=== PATIENT | male | born 1965 | race Caucasian/White ===

== ENCOUNTER 2016-08-10 21:40 | Inpatient (IN) | payer BC ==
--- NOTE | ~2016-08-10 | HP ---
History And Physical [place] [id number] [facility] [place]. [address] NAME: SONALI FRAZIER : 69 STATUS : ADM Rajiv PAT#: [id number] AGE: 51 ADM/REG DATE : 08/10/16 MR#: [id number] REPORT SERV DATE: 08/11/16 DICTATED BY: SONALI MCDONALD DATE: 08/11/16 REPORT STATUS : Draft TRANSCRIBED BY: MODL DATE: 08/11/16 DATE OF ADMISSION: 08/10/2016 POINT OF ENTRY: [facility] Emergency Department. CHIEF COMPLAINT: Abdominal wall abscess. HISTORY OF PRESENT ILLNESS: Mr. Frazier is a 51-year-old gentleman with a history of hypertension, hyperlipidemia, obstructive sleep apnea, on CPAP therapy, legal deafness as well as recurrent skin infections who presents to the emergency department with a right lower quadrant abdominal wall abscess. Majority of history is obtained from the patient's sister who is at bedside as the patient is legally deaf and is unable to provide much history. She states that he has had issues with boils in the past that will occasionally pop up. He is on chronic suppressive minocycline therapy for this issue. She received a call from him on Thursday saying that he had an abdominal wall abscess that had spontaneously ruptured and was draining blood and pus, and had a very foul odor to it. She went to visit him and found that the abscess was quite large in size, about the size of "cantaloupe" with some associated surrounding skin cellulitis. Given his diabetes, she was very concerned for systemic spread and found some Augmentin lying around in the house that he had not completed and started him on Augmentin. She then brought him to the emergency department on Thursday evening after her shift ended at work on Thursday. She denied any known recent fevers, night sweats or chills. He is not complaining of any other issues such as chest pain, shortness of breath, nausea, or vomiting, and she states that his blood sugars are very well controlled on his current regimen. Initial evaluation in the emergency department for a white count of 7.7, lactic acid is within normal limits. The abdominal wall abscess was cultured. There does not appear to be any remaining pockets of infection to be drained. He was started on IV vancomycin and admitted to the Hospitalist Service. REVIEW OF SYSTEMS: Comprehensive review of systems Otherwise negative unless listed in history of present illness. PAST MEDICAL HISTORY: 1. Obstructive sleep apnea, on CPAP therapy. 2. Glaucoma. 3. Pel-nqqbwpi-lrzofkllj diabetes mellitus type 2. 4. Legal deafness. 5. Hypertension. 6. Hyperlipidemia. 7. Recurrent skin infections with boils. 8. Ruptured disk. History And Physical [address] [address] NAME: SONALI FRAZIER : 69 STATUS : ADM Rajiv PAT#: [id number] AGE: 51 ADM/REG DATE : 08/10/16 MR#: [id number] REPORT SERV DATE: 08/11/16 DICTATED BY: SONALI MCDONALD DATE: 08/11/16 REPORT STATUS : Draft TRANSCRIBED BY: HERMILO DATE: 08/11/16 PAST SURGICAL HISTORY: 1. Cataracts. 2. Inguinal hernia. ALLERGIES: NO KNOWN DRUG ALLERGIES. HOME MEDICATIONS: 1. Norvasc 10 mg daily. 2. Neurontin 300 mg t.i.d. 3. Hydralazine 50 mg b.i.d. 4. Robaxin 750 mg q.8 hours p.r.n. 5. Minocycline 100 mg daily. 6. Percocet 5/325, 1 tab q.4 hours p.r.n. 7. Januvia 100 mg daily. 8. Timolol 0.5 mg b.i.d. SOCIAL HISTORY: Denies any alcohol or illicits, does smoke cigars. Lives alone. FAMILY MEDICAL HISTORY: Mother with hypertension, of Pick's disease. Father with coronary artery disease and diabetes. Siblings with hypertension and COPD. LABS AND IMAGIN. White count 7.7, hemoglobin is 14.1, hematocrit is 41.2, and platelet count is 258. 2. Sodium is 141, potassium 3.7, chloride 105, carbon dioxide 27, BUN 11, creatinine 0.8, glucose is 117, calcium is 9.1, protein 7.9, albumin 4.1, bilirubin is 0.6. ALT is 20, AST 12, alkaline phosphatase is 84. 3. Lactic acid 0.7. PHYSICAL EXAMINATION: VITAL SIGNS: Temperature 97.5 degrees Fahrenheit, pulse is 67, respirations 18, saturating 100% on room air, blood pressure 145/73. GENERAL: The patient is awake, alert, in no acute distress. Resting comfortably in bed. He is a well-developed, well-nourished, male. Sister is at bedside. HEENT: Atraumatic and normocephalic. Moist mucous membranes. Pupils are equal, round, reactive to light and accommodation. Extraocular eye movements are intact. No scleral icterus. NECK: No jugular venous distention. No carotid bruits. CARDIAC: Regular rate and rhythm. No murmurs or gallops. Normal S1, S2. LUNGS: Clear to auscultation bilaterally. No wheezes, rhonchi, or rales. ABDOMEN: Obese, the patient has a large area of induration of approximately 4 x 2 cm in size on the right lower quadrant. There is a draining sinus tract that does not appear to have any focal area of pus that can be further drained. The abscess with associated cavity is surrounded by abdominal wall cellulitis as well, spreading into the inguinal region as well as the left lower quadrant of his abdomen. No palpable fluid collections appreciated. No subcutaneous air. EXTREMITIES: Warm and perfused. No cyanosis, clubbing, or edema. SKIN: Warm and dry except for noted above. The patient does have various small History And Physical [address] [address] NAME: SONALI FRAZIER : 69 STATUS : ADM Rajiv PAT#: [id number] AGE: 51 ADM/REG DATE : 08/10/16 MR#: [id number] REPORT SERV DATE: 08/11/16 DICTATED BY: SONALI MCDONALD DATE: 08/11/16 REPORT STATUS : Draft TRANSCRIBED BY: MODL DATE: 08/11/16 subcentimeter nodules, but no other apparent boils or active skin infection. PSYCH: Affect appropriate. NEURO: Alert and oriented x3. Cranial nerves II through XII grossly intact. ASSESSMENT AND PLAN: Mr. Frazier is a 51-year-old gentleman who presents with a right lower quadrant abdominal wall abscess and cellulitis. PROBLEM LIST: 1. Right lower quadrant abdominal wall cellulitis and abscess with spontaneous drainage. 2. Uac-vjhgcmg-kqoqtoygk diabetes mellitus type 2. 3. Hypertension. 4. History of chronic skin infections. PLAN: 1. Abdominal wall abscess and cellulitis. We will place the patient on IV vancomycin as well as Levaquin as previous wound cultures in [facility] show growth of MRSA as well as a Proteus organism which is resistant to many antibiotics, but sensitive to Levaquin. We will follow up blood cultures as well as wound cultures that have been obtained in the emergency department. We will consult Wound Care for assistance. There does not appear to be any abscess cavity remaining to be drained. Therefore, we will hold off on surgical consultation at this time. 2. Ehd-zwpnrqk-uxrponphr diabetes mellitus 2. I am holding the patient's Januvia, placed him on insulin sliding scale. 3. Hypertension, continue the patient's home medications. 4. DVT prophylaxis, Lovenox subcutaneously. CODE STATUS: The patient wished to be full code. JCB/MODL Sonali Mcdonald MD / [id number] CC: Leti Rausch NP
--- NOTE | ~2016-08-10 | DS ---
Discharge Summary [facility] [address] [place]. [address] NAME: SONALI FRAZIER : 69 STATUS : DIS IN PAT#: [id number] AGE: 51 ADM/REG DATE : 08/10/16 MR#: [id number] REPORT SERV DATE: 08/15/16 DICTATED BY: DOUGLAS STILES DATE: 08/14/16 REPORT STATUS : Draft TRANSCRIBED BY: MODL DATE: 08/14/16 ADMISSION DATE: 08/10/2016 DISCHARGE DATE: 08/14/2016 REASON FOR ADMISSION: Abdominal wall abscess. HISTORY: This 51-year-old male with a history of recurrent skin infections who had presented to the emergency room with a right lower quadrant abdominal wall abscess that spontaneously ruptured. DISCHARGE DIAGNOSES: 1. Right lower quadrant wall cellulitis and abscess. 2. Ota-brqpobg-xyvwgxvxn diabetes type 2. 3. Hypertension. 4. Blindness. 5. Deafness. HOSPITAL COURSE: 1. Abdominal wall abscess and cellulitis. The patient had abscess spontaneously ruptured on admission, was admitted due to recurrent skin infections and possibility of multiple drug-resistant organisms as well as history of diabetes. The patient was admitted and started on IV Levaquin and IV vancomycin as he had previous wound cultures positive for MRSA and Proteus. The wound culture would be positive for E. coli resistant to Levaquin, however, the patient's cellulitis was much improved since admission. The area of abscess was still very indurated and still draining pus even as of today, we consulted surgery Dr. Cabrera to take a look at the abscess. He felt like it was fine on antibiotics for the time being and did not need incision and drainage. However, he did want the patient to follow up with him in the office. The patient was converted from IV Levaquin and vancomycin to Bactrim DS which the organism was sensitive to, and he will be sent home with a 5 day prescription for the Bactrim. DISCHARGE CONDITION: Stable. DISCHARGE MEDICATIONS: 1. Timolol 0.5% ophthalmic. 2. Hydralazine 50 mg p.o. b.i.d. 3. Gabapentin 300 mg p.o. t.i.d. 4. Robaxin 750 mg p.o. q.8 hours. 5. Percocet one tab q.4 hours p.r.n. 6. Januvia 100 mg p.o. daily. 7. Minocycline 100 mg p.o. daily to be held until after Bactrim completed. 8. Bactrim 1 tablet q.12 hours x5 days. 9. Lisinopril 10 mg p.o. daily. DISCHARGE PLAN: The patient is discharged home with home health for wound care and followup with Dr. Cabrera, Surgery in two weeks regarding abdominal abscess and follow up with primary Discharge Summary [address] [address] NAME: SONALI FRAZIER : 69 STATUS : DIS IN PAT#: [id number] AGE: 51 ADM/REG DATE : 08/10/16 MR#: [id number] REPORT SERV DATE: 08/15/16 DICTATED BY: DOUGLAS STILES DATE: 08/14/16 REPORT STATUS : Draft TRANSCRIBED BY: HERMILO DATE: 08/14/16 care Leti Rausch, in one to two weeks. MARK/BEVERLYL Douglas Stiles APN / [id number] CC: Yanick Kilpatrick NP Stephen Roe, M.D.
[~2016-08-10 21:40] MED LIST: DIABET1.25 PO; GLUCOPHAGE1000 MG PO; LISINOPRIL40 MG PO; LUTEIN1 CAP OR; LYRICA100 MG PO; MINOCIN50 PO; NORV5 PO; PRILOSEC40 MG PO; TIMOPTIC0.5 % OP
[2016-08-10 22:50] LABS: BASOPHILS 0.8 %; BASOPHILS ABSOLUTE 0.06 10/3/uL (0.0-0.16); EOSINOPHILS 7.1 %; EOSINOPHILS ABSOLUTE 0.55 10/3/uL (0.0-0.53); HEMATOCRIT 41.2 % (40.0-51.0); HEMOGLOBIN 14.1 g/dL (13.6-17.8); IMMATURE GRANULOCYTES 0.4 %; IMMATURE GRANULOCYTES ABSOLUTE 0.03 10/3/uL (0.0-0.11); LYMPHOCYTES 17.7 %; LYMPHOCYTES ABSOLUTE 1.37 10/3/uL (0.67-4.30); MANUAL DIFF NO %; MEAN CORPUS HGB CONC 34.2 g/dL (32.0-36.0); MEAN CORPUSCULAR HEMOGLOB 29.4 pg (26.0-34.0); MEAN CORPUSCULAR VOLUME 85.8 fL (80-100); MEAN PLATELET VOLUME 10.4 fL (9.2-13.0); MONOCYTES 6.1 %; MONOCYTES ABSOLUTE 0.47 10/3/uL (0.21-1.20); NEUTROPHILS 67.9 %; NEUTROPHILS ABSOLUTE 5.26 10/3/uL (2.02-8.40); PLATELET COUNT 258 10/3/uL (150-400); RBC DISTRIBUTION WIDTH 14.4 % (12.0-16.0); WHITE BLOOD CELLS 7.7 10/3/uL (4.5-10.5)
[2016-08-10 23:05] LABS: A/G RATIO 1.1 (0.7-1.9); ALBUMIN 4.1 G/DL (3.5-5.0); ALKALINE PHOSPHATASE 84 U/L (45-117); BUN (BLOOD UREA NITROGEN) 11 MG/DL (6-23); CALCIUM, SERUM 9.1 MG/DL (8.5-10.4); CHLORIDE, SERUM 105 MMOL/L (96-112); CO2 (CARBON DIOXIDE) 27 MMOL/L (24-34); CREATININE 0.88 MG/DL (0.70-1.30); GFR AFRICAN AMERICAN 117 ML/MIN (>=60); GFR NON AFRICAN AMERICAN 101 ML/MIN (>=60); GLOBULIN 3.8 G/DL (2.5-4.1); GLUCOSE, SERUM 117 MG/DL (60-99); POTASSIUM, SERUM 3.7 MMOL/L (3.5-5.3); SGOT(AST) 12 U/L (5-40); SGPT(ALT) 28 U/L (5-65); SODIUM, SERUM 141 MMOL/L (135-148); TOTAL BILIRUBIN 0.6 MG/DL (0-1.2); TOTAL PROTEIN 7.9 G/DL (6.0-8.5)
[2016-08-11] MEDS ORDERED: APRES50 PO (02:13)
[2016-08-11] MEDS ORDERED: NEUR300 PO (02:13)
[2016-08-11] MEDS ORDERED: METHOC750B PO (02:14)
[2016-08-11] MEDS ORDERED: NORV10 PO (02:15)
[2016-08-11] MEDS ORDERED: PCET PO (02:15)
[2016-08-11] MEDS ORDERED: JANUVIA100 MG PO (02:16)
[2016-08-11] MEDS ORDERED: TIMOPTIC OCU0.25 % OPH (02:16)
[2016-08-11] MEDS ORDERED: MINOCIN100 PO (02:18)
[2016-08-12 08:35] LABS: BASOPHILS 0.9 %; BASOPHILS ABSOLUTE 0.05 10/3/uL (0.0-0.16); EOSINOPHILS 9.6 %; EOSINOPHILS ABSOLUTE 0.53 10/3/uL (0.0-0.53); HEMATOCRIT 40.8 % (40.0-51.0); HEMOGLOBIN 13.7 g/dL (13.6-17.8); IMMATURE GRANULOCYTES 0.4 %; IMMATURE GRANULOCYTES ABSOLUTE 0.02 10/3/uL (0.0-0.11); LYMPHOCYTES 28.7 %; LYMPHOCYTES ABSOLUTE 1.58 10/3/uL (0.67-4.30); MEAN CORPUS HGB CONC 33.6 g/dL (32.0-36.0); MEAN CORPUSCULAR HEMOGLOB 28.4 pg (26.0-34.0); MEAN CORPUSCULAR VOLUME 84.5 fL (80-100); MEAN PLATELET VOLUME 10.7 fL (9.2-13.0); MONOCYTES 6.2 %; MONOCYTES ABSOLUTE 0.34 10/3/uL (0.21-1.20); NEUTROPHILS 54.2 %; NEUTROPHILS ABSOLUTE 2.99 10/3/uL (2.02-8.40); PLATELET COUNT 279 10/3/uL (150-400); RBC DISTRIBUTION WIDTH 14.4 % (12.0-16.0); RED CELL COUNT 4.83 10/6/uL (4.7-6.1); WHITE BLOOD CELLS 5.5 10/3/uL (4.5-10.5)
[2016-08-12 08:37] LABS: MANUAL DIFF NO %
[2016-08-12 08:40] LABS: BUN (BLOOD UREA NITROGEN) 8 MG/DL (6-23); CALCIUM, SERUM 8.9 MG/DL (8.5-10.4); CHLORIDE, SERUM 107 MMOL/L (96-112); CO2 (CARBON DIOXIDE) 26 MMOL/L (24-34); CREATININE 0.79 MG/DL (0.70-1.30); GFR AFRICAN AMERICAN 122 ML/MIN (>=60); GFR NON AFRICAN AMERICAN 105 ML/MIN (>=60); GLUCOSE, SERUM 116 MG/DL (60-99); POTASSIUM, SERUM 3.8 MMOL/L (3.5-5.3); SODIUM, SERUM 141 MMOL/L (135-148)
[2016-08-13 05:41] LABS: BUN (BLOOD UREA NITROGEN) 11 MG/DL (6-23); CALCIUM, SERUM 8.3 MG/DL (8.5-10.4); CHLORIDE, SERUM 107 MMOL/L (96-112); CO2 (CARBON DIOXIDE) 25 MMOL/L (24-34); CREATININE 0.85 MG/DL (0.70-1.30); GFR AFRICAN AMERICAN 119 ML/MIN (>=60); GFR NON AFRICAN AMERICAN 102 ML/MIN (>=60); POTASSIUM, SERUM 3.8 MMOL/L (3.5-5.3); SODIUM, SERUM 141 MMOL/L (135-148)
[2016-08-13 05:54] LABS: GLUCOSE, SERUM 188 MG/DL (60-99)
[2016-08-14 06:09] LABS: BASOPHILS 0.8 %; BASOPHILS ABSOLUTE 0.04 10/3/uL (0.0-0.16); EOSINOPHILS 10.1 %; IMMATURE GRANULOCYTES 0.4 %; IMMATURE GRANULOCYTES ABSOLUTE 0.02 10/3/uL (0.0-0.11); LYMPHOCYTES 34.4 %; MEAN CORPUSCULAR HEMOGLOB 27.6 pg (26.0-34.0); MEAN CORPUSCULAR VOLUME 83.9 fL (80-100); MEAN PLATELET VOLUME 10.3 fL (9.2-13.0); MONOCYTES 8.3 %; MONOCYTES ABSOLUTE 0.41 10/3/uL (0.21-1.20); NEUTROPHILS ABSOLUTE 2.27 10/3/uL (2.02-8.40); PLATELET COUNT 261 10/3/uL (150-400); RBC DISTRIBUTION WIDTH 14.3 % (12.0-16.0); RED CELL COUNT 4.34 10/6/uL (4.7-6.1); WHITE BLOOD CELLS 4.9 10/3/uL (4.5-10.5)
[2016-08-14 06:17] LABS: BUN (BLOOD UREA NITROGEN) 10 MG/DL (6-23); CALCIUM, SERUM 8.3 MG/DL (8.5-10.4); CHLORIDE, SERUM 101 MMOL/L (96-112); CO2 (CARBON DIOXIDE) 27 MMOL/L (24-34); CREATININE 0.91 MG/DL (0.70-1.30); GFR AFRICAN AMERICAN 114 ML/MIN (>=60); GFR NON AFRICAN AMERICAN 99 ML/MIN (>=60); SODIUM, SERUM 136 MMOL/L (135-148)
[2016-08-14 06:18] LABS: GLUCOSE, SERUM 343 MG/DL (60-99); HEMATOCRIT 36.4 % (40.0-51.0); MANUAL DIFF NO %
[2016-08-14] MEDS ORDERED: BACDS PO (09:24)
[2016-08-14] MEDS ORDERED: PRIN10 PO (09:24)
== END 2016-08-14 13:13 | disposition home health service (06) | DRG 603 ==
LOC: ER 21:40 → ER/OF 23:59 → 4SO 08-11 05:17
PROVIDERS: Internal Medicine; Nurse Practitioner Gerontology; Specialist
DX: L02.211 Cutaneous abscess of abdominal wall (principal); Z99.81 Dependence on supplemental oxygen; I10 Essential (primary) hypertension; E78.5 Hyperlipidemia, unspecified; G47.33 Obstructive sleep apnea (adult) (pediatric); H91.90 Unspecified hearing loss, unspecified ear; E11.9 Type 2 diabetes mellitus without complications; L03.311 Cellulitis of abdominal wall; H54.0 Blindness, both eyes; I34.0 Nonrheumatic mitral (valve) insufficiency; H40.9 Unspecified glaucoma; E66.01 Morbid (severe) obesity due to excess calories; T46.1X5A Adverse effect of calcium-channel blockers, initial encounter; G89.29 Other chronic pain; Z83.3 Family history of diabetes mellitus; Z82.49 Family history of ischemic heart disease and other diseases of the circulatory system; Z86.14 Personal history of Methicillin resistant Staphylococcus aureus infection
CPT/HCPCS: 80048; 80053; 80202; 82962; 83605; 85025; 87040; 87070; 87077; 87186; 87205; 94660; 96365; 99285; A9270-GY; J1956; J3370

== ENCOUNTER 2016-08-29 21:45 | Emergency (ER) | payer BC ==
[~2016-08-29 21:45] MED LIST changes: +APRES50 PO; +BACDS PO; +JANUVIA100 MG PO; +METHOC750B PO; +MINOCIN100 PO; +NEUR300 PO; +NORV10 PO; +PCET PO; +PRIN10 PO; +TIMOPTIC OCU0.25 % OPH
[2016-08-30 03:13] LABS: BASOPHILS 1.2 %; BASOPHILS ABSOLUTE 0.08 10/3/uL (0.0-0.16); EOSINOPHILS 9.8 %; EOSINOPHILS ABSOLUTE 0.64 10/3/uL (0.0-0.53); ER CBC TAT 0 Hrs 00 Mins; HEMOGLOBIN 13.5 g/dL (13.6-17.8); IMMATURE GRANULOCYTES 0.2 %; IMMATURE GRANULOCYTES ABSOLUTE 0.01 10/3/uL (0.0-0.11); LYMPHOCYTES 28.1 %; LYMPHOCYTES ABSOLUTE 1.83 10/3/uL (0.67-4.30); MEAN CORPUS HGB CONC 33.5 g/dL (32.0-36.0); MEAN CORPUSCULAR HEMOGLOB 29.4 pg (26.0-34.0); MEAN PLATELET VOLUME 10.6 fL (9.2-13.0); MONOCYTES 8.6 %; MONOCYTES ABSOLUTE 0.56 10/3/uL (0.21-1.20); NEUTROPHILS 52.1 %; NEUTROPHILS ABSOLUTE 3.39 10/3/uL (2.02-8.40); PLATELET COUNT 223 10/3/uL (150-400); RBC DISTRIBUTION WIDTH 14.3 % (12.0-16.0); RED CELL COUNT 4.59 10/6/uL (4.7-6.1); WHITE BLOOD CELLS 6.5 10/3/uL (4.5-10.5)
[2016-08-30 03:16] LABS: HEMATOCRIT 40.3 % (40.0-51.0); MANUAL DIFF NO %; MEAN CORPUSCULAR VOLUME 87.8 fL (80-100)
[2016-08-30 03:24] LABS: INFLUENZA A SCREEN NEGATIVE (NEGATIVE); INFLUENZA B SCREEN NEGATIVE (NEGATIVE)
[2016-08-30 03:30] LABS: A/G RATIO 1.2 (0.7-1.9); BUN (BLOOD UREA NITROGEN) 10 MG/DL (6-23); CALCIUM, SERUM 8.9 MG/DL (8.5-10.4); CHLORIDE, SERUM 107 MMOL/L (96-112); CO2 (CARBON DIOXIDE) 26 MMOL/L (24-34); CREATININE 0.94 MG/DL (0.70-1.30); GFR AFRICAN AMERICAN 110 ML/MIN (>=60); GFR NON AFRICAN AMERICAN 95 ML/MIN (>=60); GLOBULIN 3.4 G/DL (2.5-4.1); POTASSIUM, SERUM 3.9 MMOL/L (3.5-5.3); SGOT(AST) 12 U/L (5-40); SGPT(ALT) 30 U/L (5-65); TOTAL BILIRUBIN 0.6 MG/DL (0-1.2); TOTAL PROTEIN 7.4 G/DL (6.0-8.5)
[2016-08-30 03:31] LABS: ALKALINE PHOSPHATASE 69 U/L (45-117); GLUCOSE, SERUM 130 MG/DL (60-99); SODIUM, SERUM 143 MMOL/L (135-148)
[2016-08-30 03:56] LABS: ASCORBIC ACID (UR NOT ORDER) NEG (NEG); BILIRUBIN, URINE NEGATIVE (NEG); ER URINALYSIS TAT 0 Hrs 00 Mins; KETONE, URINE NEGATIVE (NEG); LEUKOCYTE ESTERASE(NOT OR NEG (NEG); NITRITE (URINE) NEG (NEG); WBC (NOT ORDERED) (RFLEX) 1 (0-5)
[2016-08-30 04:32] LABS: PROCALCITONIN 0.05 ng/mL (<0.5)
== END 2016-08-30 05:00 | disposition home or self-care (01) ==
LOC: ER 21:45
PROVIDERS: Nurse Practitioner
DX: L08.9 Local infection of the skin and subcutaneous tissue, unspecified (principal); E11.65 Type 2 diabetes mellitus with hyperglycemia; I10 Essential (primary) hypertension; E78.5 Hyperlipidemia, unspecified; Z79.899 Other long term (current) drug therapy
CPT/HCPCS: 80053; 81001; 83605; 84145; 85025; 87040; 87804; 99284; A9270-GY

== ENCOUNTER 2016-10-05 19:08 | Inpatient (IN) | payer BC, OTHER ==
--- NOTE | ~2016-10-05 | HP ---
History And Physical [place] [address] [facility] [place]. [address] NAME: SONALI FRAZIER : [birth year] STATUS : ADM IN [facility]#: [id number] AGE: 51 ADM/REG DATE : 10/06/16 MR#: [id number] REPORT SERV DATE: 10/06/16 DICTATED BY: SONALI MCDONALD DATE: 10/06/16 REPORT STATUS : Draft TRANSCRIBED BY: MODL DATE: 10/06/16 DATE OF ADMISSION: 10/06/2016 POINT OF ENTRY: [facility] Emergency Department PRIMARY CARE PHYSICIAN: Savannah Zuñiga NP CHIEF COMPLAINT: Abdominal wall cellulitis. HISTORY OF PRESENT ILLNESS: Mr. Frazier is a 51-year-old gentleman with history of non-insulin dependent diabetes mellitus type 2, hypertension, hyperlipidemia, obstructive sleep apnea, on CPAP therapy as well as legal deafness and recurrent skin infections who presents to the emergency department today with a one- to two-day history of right lower quadrant abdominal wall cellulitis with abscess that is now spontaneously draining. The patient was admitted to the Hospitalist Service from 08/10/2016 through 08/14/2016 for very similar complaints of the right lower quadrant abdominal wall cellulitis with spontaneously draining abscess. Wound cultures at that time grew E. coli that was resistant to fluoroquinolones. The patient was subsequently discharged to home on Bactrim. The patient's sister who is at bedside and providing all the history states that he had good response to the Bactrim, however, a few days after completing the course of Bactrim, it started to become red again, and he was seen in the ER, received a second prescription for Bactrim. Unfortunately, a few days later, he developed a diffuse erythematous rash which was felt to be due to the Bactrim and that was then discontinued, replacement antibiotic was not able to be obtained from his primary care physician. Sister states he has been doing well up until last night when he called her again to tell her that he had a boil in the right lower quadrant that was draining. She came by to see him after work today and noticed that there was redness in the right lower quadrant underneath his pannus with spontaneous drainage with foul odor. He was then transferred to the ER for further evaluation. Initial evaluation in the emergency department notable for stable vital signs except for elevated blood pressure initially of 226/100; on recheck, it is now 190s/80s. His white count is normal. Wound and blood cultures were obtained and he is started on vancomycin and admitted to the Hospitalist Service. COMPREHENSIVE REVIEW OF SYSTEMS: Otherwise, negative unless listed in history of present illness. PREVIOUS MEDICAL HISTORY: 1. Legal deafness. 2. Ufp-ytwanlj-venytyazd diabetes mellitus type 2. 3. Hypertension. 4. Hyperlipidemia. History And Physical [address] [address] NAME: SONALI FRAZIER : 69 STATUS : ADM IN [facility]#: [id number] AGE: 51 ADM/REG DATE : 10/06/16 MR#: [id number] REPORT SERV DATE: 10/06/16 DICTATED BY: SONALI MCDONALD DATE: 10/06/16 REPORT STATUS : Draft TRANSCRIBED BY: HERMILO DATE: 10/06/16 5. Obstructive sleep apnea, on CPAP therapy. 6. History of glaucoma. 7. History of recurrent skin infections growing multiple organisms including E. coli, MRSA, Proteus, and Staph epidermidis. SURGICAL HISTORY: 1. Cataracts. 2. Inguinal hernia. ALLERGIES: BACTRIM. HOME MEDICATIONS: Pending at the time of dictation. SOCIAL HISTORY: Denies any tobacco, alcohol, or illicits. Lives alone. Sister is very closely involved in his care. FAMILY MEDICAL HISTORY: Mother with hypertension. Father with coronary artery disease and diabetes. Siblings with hypertension and COPD. LABS AND IMAGIN. White count 8.0, hemoglobin is 14.3, hematocrit is 43.7, and platelet count is 242. 2. Sodium is 140, potassium 3.8, chloride 104, carbon dioxide 31, BUN 13, creatinine 0.99, glucose is 140, calcium is 9.5, protein 7.9, albumin is 4.1. Bilirubin is 0.6, ALT is 17, AST 10, alkaline phosphatase is 75. Urinalysis; specific gravity is 1.018, no evidence of any infection. 3. Chest x-ray per my review shows no acute cardiopulmonary abnormality. PHYSICAL EXAMINATION: VITAL SIGNS: Temperature is 98.3 degrees Fahrenheit, pulse is 63, respirations 20, saturating 100% on room air, blood pressure 226/100, on recheck, it is now 190s/90s. GENERAL: The patient is awake, alert, and in no distress, resting comfortably in bed. This is a well-developed, well-nourished male who is completely deaf, but is able to read some lips, primarily communicates through his sister who is at bedside. HEENT: Atraumatic and normocephalic. Moist mucous membranes. Pupils equal, round, reactive to light and accommodation. Extraocular eye movement is intact. No scleral icterus. NECK: No jugular venous distention. No carotid bruits. CARDIAC: Regular rate and rhythm. No murmurs or gallops. Normal S1, S2. LUNGS: Clear to auscultation bilaterally. No wheezes, rhonchi, crackles. ABDOMEN: Obese, has a large amount of pannus underneath the pannus skin fold on the right lower quadrant. He has a large area of approximately 6 x 9 cm of erythema with an area of spontaneous drainage of purulent fluid with a foul odor. EXTREMITIES: Warm and perfused. No cyanosis, clubbing, or edema. SKIN: Warm and dry except for as noted above. PSYCH: Affect is appropriate. NEURO: Alert and oriented x3. Cranial nerves II through XII grossly intact. Speech is normal. Gait not assessed. History And Physical [address] [address] NAME: SONALI FRAZIER : 69 STATUS : ADM IN [facility]#: [id number] AGE: 51 ADM/REG DATE : 10/06/16 MR#: [id number] REPORT SERV DATE: 10/06/16 DICTATED BY: SONALI MCDONALD DATE: 10/06/16 REPORT STATUS : Draft TRANSCRIBED BY: HERMILO DATE: 10/06/16 ASSESSMENT: Mr. Frazier is a 51-year-old gentleman, who presents again with a right lower quadrant abdominal wall cellulitis and spontaneously drained abscess. Problem list: 1. Right lower quadrant abdominal wall cellulitis and abscess. 2. Hypertension. 3. Hiw-irzvzpx-dlnhfwpti diabetes mellitus type 2. 4. Legal deafness. PLAN: 1. Right lower quadrant abdominal cellulitis and abscess. The patient has no evidence of systemic toxicities and afebrile and no white count. We will obtain wound as well as blood cultures. Given his polymicrobial wound cultures for the past two years, I will initially place him on IV vancomycin as well as Azactam to cover the MRSA as well as E. coli and Proteus species. We will narrow antibiotics per culture results. We will consult Wound Care for assistance. 2. Hypertension. Sister states that he was taken off his amlodipine and hydralazine and placed on lisinopril at the time of last discharge. The patient states compliance with lisinopril. We will continue his lisinopril, add back his Norvasc 10 mg daily as well as place him on IV hydralazine p.r.n. 3. Drb-qnoguck-kqhootigr diabetes mellitus type 2. Holding oral hypoglycemics, we will place him on a level 1 insulin sliding scale. 4. Deep venous thrombosis prophylaxis. Lovenox subcu. 5. Code status. The patient wished to be full code. RICARDOB/MODL Sonali Mcdonald MD / [id number] CC: Yanick Quiñones NP
--- NOTE | ~2016-10-05 | DS ---
Discharge Summary [facility] [address] [place]. [address] NAME: SONALI FRAZIER : 69 STATUS : DIS IN PAT#: [id number] AGE: 51 ADM/REG DATE : 10/06/16 MR#: [id number] REPORT SERV DATE: 10/11/16 DICTATED BY: VIRGINIA VALERO DATE: 10/10/16 REPORT STATUS : Draft TRANSCRIBED BY: MODIgnacio DATE: 10/10/16 ADMISSION DATE: 10/06/2016 DISCHARGE DATE: 10/10/2016 DIAGNOSES: 1. Recurrent abdominal wall cellulitis. 2. Hypertension. 3. History of obstructive sleep apnea. 4. History of type 2 diabetes. 5. Legal deafness. FOLLOWUP: The patient is to follow up with the primary care physician in one to two weeks. DISCHARGE MEDICATIONS: 1. Keflex 500 mg p.o. b.i.d. for two days. 2. Januvia 100 mg p.o. daily. 3. Neurontin 300 mg p.o. q.h.s. 4. Florastor one cap p.o. b.i.d. 5. Prinivil 10 mg p.o. b.i.d. 6. Robaxin 750 mg p.o. b.i.d. 7. Minocycline 100 mg p.o. daily per home dose. 8. Hydralazine 500 mg p.o. t.i.d. 9. Timolol ophthalmic drops 0.5% b.i.d. 10.Percocet 5/325 one tab p.o. q.4 hours p.r.n. per home dose. HOSPITALIST: Dr. Sonali Tan, Dr. Mcdowell, and Dr. Valero. HOSPITAL COURSE: This is a 51 years old male with a past medical history of type 2 diabetes, hypertension, presented with recurrent abdominal cellulitis for which the patient has had before and recently discharged from the hospital on 08/14/2016 by a different provider and was discharged with Bactrim, although according to the patient and family, the cellulitis improved, however, began to recur after discontinuation of his antibiotic. Also the patient presented to [facility] ER with uncontrolled hypertension with blood pressure 226/100. The patient was admitted to the Hospitalist Service, initially cared for by Dr. Mcdowell for some right lower quadrant abdominal wall cellulitis with the initial suspected abscess; however, the abscess apparently had a spontaneous drainage, it did not require any surgical intervention or consultation. He did have a CT of the abdomen and pelvis that ruled out any intraabdominal abscesses. The patient was continued on IV antibiotic with great improvement quickly with a resolution of his cellulitis by the time he was discharged. Culture from the spontaneously drained abscess grew out E coli and Staph species negative that was only sensitive to IV antibiotics. The patient IV antibiotics for the E coli and will continue with Keflex at discharge negative, however, the patient's erythema resolved prior to discharge. Also, the patient is recommended to continue with Hibiclens or chlorhexidine antibacterial topical wash to his abdomen at least three times a week as a preventative of recurrence, suspect due to the area, the patient would benefit from a topical antibacterial wash to decrease bacterial Discharge Summary [address] [address] NAME: SONALI FRAZIER : 69 STATUS : DIS IN PAT#: [id number] AGE: 51 ADM/REG DATE : 10/06/16 MR#: [id number] REPORT SERV DATE: 10/11/16 DICTATED BY: VIRGINIA VALERO DATE: 10/10/16 REPORT STATUS : Draft TRANSCRIBED BY: MODL DATE: 10/10/16 load. The patient was discharged to home in stable condition with much improved blood pressure control. Also, blood pressure medicines were increased during this hospital course and prescription given. [facility]/HERMILO Virginia Valero M.D. / [id number] CC: Yanick Sue NP
[2016-10-05 21:19] LABS: BASOPHILS 0.6 %; BASOPHILS ABSOLUTE 0.05 10/3/uL (0.0-0.16); EOSINOPHILS ABSOLUTE 0.48 10/3/uL (0.0-0.53); ER CBC TAT 0 Hrs 07 Mins; HEMATOCRIT 43.7 % (40.0-51.0); HEMOGLOBIN 14.3 g/dL (13.6-17.8); IMMATURE GRANULOCYTES 0.2 %; IMMATURE GRANULOCYTES ABSOLUTE 0.02 10/3/uL (0.0-0.11); LYMPHOCYTES 16.1 %; LYMPHOCYTES ABSOLUTE 1.29 10/3/uL (0.67-4.30); MEAN CORPUS HGB CONC 32.7 g/dL (32.0-36.0); MEAN CORPUSCULAR VOLUME 85.5 fL (80-100); MEAN PLATELET VOLUME 11.1 fL (9.2-13.0); MONOCYTES 6.6 %; MONOCYTES ABSOLUTE 0.53 10/3/uL (0.21-1.20); NEUTROPHILS 70.5 %; NEUTROPHILS ABSOLUTE 5.64 10/3/uL (2.02-8.40); PLATELET COUNT 242 10/3/uL (150-400); RBC DISTRIBUTION WIDTH 13.2 % (12.0-16.0); RED CELL COUNT 5.11 10/6/uL (4.7-6.1)
[2016-10-05 21:21] LABS: MANUAL DIFF NO %
[2016-10-05 21:21] LABS: ASCORBIC ACID (UR NOT ORDER) NEG (NEG); BILIRUBIN, URINE NEGATIVE (NEG); KETONE, URINE NEGATIVE (NEG); LEUKOCYTE ESTERASE(NOT OR NEG (NEG); NITRITE (URINE) NEG (NEG); WBC (NOT ORDERED) (RFLEX) < 1 (0-5)
[2016-10-05 21:36] LABS: A/G RATIO 1.1 (0.7-1.9); ALBUMIN 4.1 G/DL (3.5-5.0); ALKALINE PHOSPHATASE 75 U/L (45-117); BUN (BLOOD UREA NITROGEN) 13 MG/DL (6-23); CALCIUM, SERUM 9.5 MG/DL (8.5-10.4); CHLORIDE, SERUM 104 MMOL/L (96-112); CO2 (CARBON DIOXIDE) 31 MMOL/L (24-34); CREATININE 0.99 MG/DL (0.70-1.30); GFR AFRICAN AMERICAN 103 ML/MIN (>=60); GFR NON AFRICAN AMERICAN 89 ML/MIN (>=60); GLOBULIN 3.8 G/DL (2.5-4.1); GLUCOSE, SERUM 140 MG/DL (60-99); POTASSIUM, SERUM 3.8 MMOL/L (3.5-5.3); SGOT(AST) 10 U/L (5-40); SGPT(ALT) 17 U/L (5-65); SODIUM, SERUM 140 MMOL/L (135-148); TOTAL BILIRUBIN 0.6 MG/DL (0-1.2); TOTAL PROTEIN 7.9 G/DL (6.0-8.5)
[2016-10-06 06:59] LABS: BASOPHILS 0.9 %; BASOPHILS ABSOLUTE 0.06 10/3/uL (0.0-0.16); EOSINOPHILS 6.6 %; EOSINOPHILS ABSOLUTE 0.43 10/3/uL (0.0-0.53); HEMATOCRIT 38.8 % (40.0-51.0); HEMOGLOBIN 12.9 g/dL (13.6-17.8); IMMATURE GRANULOCYTES 0.3 %; IMMATURE GRANULOCYTES ABSOLUTE 0.02 10/3/uL (0.0-0.11); LYMPHOCYTES 23.7 %; LYMPHOCYTES ABSOLUTE 1.55 10/3/uL (0.67-4.30); MANUAL DIFF NO %; MEAN CORPUS HGB CONC 33.2 g/dL (32.0-36.0); MEAN CORPUSCULAR VOLUME 84.3 fL (80-100); MEAN PLATELET VOLUME 10.5 fL (9.2-13.0); MONOCYTES 9.3 %; MONOCYTES ABSOLUTE 0.61 10/3/uL (0.21-1.20); NEUTROPHILS 59.2 %; NEUTROPHILS ABSOLUTE 3.87 10/3/uL (2.02-8.40); PLATELET COUNT 212 10/3/uL (150-400); RBC DISTRIBUTION WIDTH 13.2 % (12.0-16.0); WHITE BLOOD CELLS 6.5 10/3/uL (4.5-10.5)
[2016-10-06 07:08] LABS: BUN (BLOOD UREA NITROGEN) 10 MG/DL (6-23); CALCIUM, SERUM 8.8 MG/DL (8.5-10.4); CHLORIDE, SERUM 108 MMOL/L (96-112); CO2 (CARBON DIOXIDE) 27 MMOL/L (24-34); CREATININE 0.84 MG/DL (0.70-1.30); GFR AFRICAN AMERICAN 119 ML/MIN (>=60); GFR NON AFRICAN AMERICAN 103 ML/MIN (>=60); GLUCOSE, SERUM 103 MG/DL (60-99); POTASSIUM, SERUM 3.9 MMOL/L (3.5-5.3); SODIUM, SERUM 142 MMOL/L (135-148)
[2016-10-07 06:14] LABS: BUN (BLOOD UREA NITROGEN) 9 MG/DL (6-23); CALCIUM, SERUM 8.9 MG/DL (8.5-10.4); CHLORIDE, SERUM 106 MMOL/L (96-112); CO2 (CARBON DIOXIDE) 28 MMOL/L (24-34); CREATININE 0.98 MG/DL (0.70-1.30); GFR AFRICAN AMERICAN 105 ML/MIN (>=60); GFR NON AFRICAN AMERICAN 90 ML/MIN (>=60); GLUCOSE, SERUM 97 MG/DL (60-99); SODIUM, SERUM 142 MMOL/L (135-148)
[2016-10-08 07:00] LABS: BUN (BLOOD UREA NITROGEN) 10 MG/DL (6-23); CALCIUM, SERUM 9.3 MG/DL (8.5-10.4); CHLORIDE, SERUM 108 MMOL/L (96-112); CO2 (CARBON DIOXIDE) 23 MMOL/L (24-34); CREATININE 0.82 MG/DL (0.70-1.30); GFR AFRICAN AMERICAN 120 ML/MIN (>=60); GFR NON AFRICAN AMERICAN 104 ML/MIN (>=60); GLUCOSE, SERUM 99 MG/DL (60-99); POTASSIUM, SERUM 4.6 MMOL/L (3.5-5.3); SODIUM, SERUM 140 MMOL/L (135-148)
[2016-10-09 05:55] LABS: BASOPHILS 0.9 %; BASOPHILS ABSOLUTE 0.06 10/3/uL (0.0-0.16); EOSINOPHILS 7.2 %; EOSINOPHILS ABSOLUTE 0.49 10/3/uL (0.0-0.53); HEMOGLOBIN 14.5 g/dL (13.6-17.8); IMMATURE GRANULOCYTES 0.1 %; IMMATURE GRANULOCYTES ABSOLUTE 0.01 10/3/uL (0.0-0.11); LYMPHOCYTES 19.6 %; LYMPHOCYTES ABSOLUTE 1.34 10/3/uL (0.67-4.30); MEAN CORPUS HGB CONC 33.3 g/dL (32.0-36.0); MEAN CORPUSCULAR HEMOGLOB 28.4 pg (26.0-34.0); MEAN CORPUSCULAR VOLUME 85.3 fL (80-100); MEAN PLATELET VOLUME 11.3 fL (9.2-13.0); MONOCYTES 8.1 %; MONOCYTES ABSOLUTE 0.55 10/3/uL (0.21-1.20); NEUTROPHILS 64.1 %; NEUTROPHILS ABSOLUTE 4.37 10/3/uL (2.02-8.40); PLATELET COUNT 238 10/3/uL (150-400); RBC DISTRIBUTION WIDTH 12.9 % (12.0-16.0); WHITE BLOOD CELLS 6.8 10/3/uL (4.5-10.5)
[2016-10-09 05:58] LABS: HEMATOCRIT 43.5 % (40.0-51.0); MANUAL DIFF NO %
[2016-10-09 06:06] LABS: BUN (BLOOD UREA NITROGEN) 11 MG/DL (6-23); CHLORIDE, SERUM 106 MMOL/L (96-112); CO2 (CARBON DIOXIDE) 24 MMOL/L (24-34); CREATININE 0.86 MG/DL (0.70-1.30); GFR AFRICAN AMERICAN 118 ML/MIN (>=60); GFR NON AFRICAN AMERICAN 102 ML/MIN (>=60); GLUCOSE, SERUM 111 MG/DL (60-99); POTASSIUM, SERUM 3.9 MMOL/L (3.5-5.3); SODIUM, SERUM 141 MMOL/L (135-148)
[2016-10-10] MEDS ORDERED: K500 PO (13:38)
[2016-10-10] MEDS ORDERED: ZESTRIL10 MG PO (13:38)
[2016-10-10] MEDS ORDERED: FLORASTOR250 MG PO (13:39)
[2016-10-10] MEDS ORDERED: APRES50 PO (13:39)
== END 2016-10-10 20:15 | disposition home or self-care (01) | DRG 603 ==
LOC: ER 19:08 → 5SO 10-06 00:37
PROVIDERS: Emergency Medicine; Hospitalist; Internal Medicine
DX: L03.311 Cellulitis of abdominal wall (principal); I10 Essential (primary) hypertension; E11.9 Type 2 diabetes mellitus without complications; E78.5 Hyperlipidemia, unspecified; G47.33 Obstructive sleep apnea (adult) (pediatric); H91.93 Unspecified hearing loss, bilateral; Z82.49 Family history of ischemic heart disease and other diseases of the circulatory system; Z83.3 Family history of diabetes mellitus; Z79.899 Other long term (current) drug therapy; Z88.2 Allergy status to sulfonamides; Z79.84 Long term (current) use of oral hypoglycemic drugs
CPT/HCPCS: 71020; 74176; 80048; 80053; 80202; 81001; 82962; 85025; 87040; 87070; 87077; 87186; 87205; 99284; A9270-GY; J0360; J0690; J3370